=== PATIENT | male | born 1985 | race African-American/Black ===

== ENCOUNTER 2017-06-12 21:01 | Emergency (ER) | payer BC, OTHER ==
[2017-06-12] MEDS ORDERED: Ibuprofen TAB* 400 MG PO ONE (22:36)
--- NOTE | 2017-06-12 22:36 | ED ---
Samantha Parrish Edward, scribed for Nikhil Méndez MD on 06/12/17 at 2202 . HPI Chest Pain - HPI Summary HPI Summary: 31 y/o male presents to ED c/o intermittent CP for around 24 hours. The pain is aggravated when the patient lays down, stands up and bends over. Patient rates the pain at 2/10 at triage. Denies SOB. 1 year ago the pt had similar symptoms. - History of Current Complaint Chief Complaint: EDChestWallPain Hx Obtained From: Patient Timing: Intermittent Initial Severity: Mild Current Severity: Mild Pain Intensity: 2 Pain Scale Used: 0-10 Numeric Aggravating Factor(s): Position - Laying down, standing up, bending over Associated Signs and Symptoms: Negative: Shortness of Breath - Allergy/Home Medications Allergies/Adverse Reactions: Allergies Allergy/AdvReac Type Severity Reaction Status Date / Time No Known Allergies Allergy Verified 05/10/16 03:13 PMH/Surg Hx/FS Hx/Imm Hx Previously Healthy: No Endocrine/Hematology History: Denies: Hx Diabetes Cardiovascular History: Reports: Hx Hypertension - pre HTN Denies: Hx Congestive Heart Failure, Other Cardiovascular Problems/Disorders History: Denies: Hx Renal Disease Infectious Disease History: No Infectious Disease History: Denies: Traveled Outside the [place] in Last 30 Days - Family History Family History: R & n/C - Social History Alcohol Use: None Hx Substance Use: No Substance Use Type: Reports: None Hx Tobacco Use: No Smoking Status (MU): Never Smoked Tobacco Review of Systems Constitutional: Negative Eyes: Negative ENT: Negative Positive: Chest Pain Respiratory: Negative Negative: Shortness Of Breath Gastrointestinal: Negative Genitourinary: Negative Musculoskeletal: Negative Skin: Negative Neurological: Negative Psychological: Normal All Other Systems Reviewed And Are Negative: Yes Physical Exam Triage Information Reviewed: Yes Vital Signs On Initial Exam: Initial Vitals Temp Pulse Resp BP Pulse Ox 98.3 F 61 15 135/87 100 06/12/17 21:05 06/12/17 21:05 06/12/17 21:05 06/12/17 21:05 06/12/17 21:05 Vital Signs Reviewed: Yes Appearance: Positive: No Pain Distress, Thin Skin: Positive: Warm Head/Face: Positive: Normal Head/Face Inspection Eyes: Positive: CHICO ENT: Positive: Hearing grossly normal Neck: Positive: Supple Respiratory/Lung Sounds: Positive: Clear to Auscultation, Breath Sounds Present Cardiovascular: Positive: RRR Abdomen Description: Positive: Nontender, Soft Bowel Sounds: Positive: Present Musculoskeletal: Positive: Strength/ROM Intact Neurological: Positive: Alert, Oriented to Person Place, Time Diagnostics - Vital Signs Vital Signs Temp Pulse Resp BP Pulse Ox 06/12/17 21:05 98.3 F 61 15 135/87 100 - Laboratory Lab Statement: Any lab studies that have been ordered have been reviewed, and results considered in the medical decision making process. - Radiology CXR Xray Interpretation: No Acute Changes Radiology Interpretation Completed By: ED Physician - EKG 1 EKG Interpretation: 21:11 - Sinus Bradycardia @ 57 bpm Re-Evaluation - Re-Evaluation First Eval Change: Improved - results d/w pt Chest Pain Course/Dx - Course Assessment/Plan: 31 y/o male presents to ED c/o intermittent CP for around 24 hours. The pain is aggravated when the patient lays down, stands up and bends over. Patient rates the pain at 2/10 at triage. Denies SOB. 1 year ago the pt had similar symptoms. - Diagnoses Provider Diagnoses: Chest pain Discharge - Discharge Plan Condition: Stable Disposition: HOME Prescriptions: Ibuprofen TAB* [Motrin TAB* 800 MG] 800 mg PO TID #30 tab Patient Education Materials: Chest Pain (ED) Referrals: Omero Burnham MD [Primary Care Provider] - 3 Days (Please f/u in 2-3 days) The documentation as recorded by the Samantha madrid Edward accurately reflects the service I personally performed and the decisions made by , Nikhil Méndez MD.
[2017-06-12 23:25] VITALS: BP 118/72
--- NOTE | 2017-06-13 07:42 | RAD ---
HISTORY: Chest pain COMPARISONS: CT dated May 10, 2016 VIEWS: 4: Frontal dual-energy and lateral views of the chest. FINDINGS: CARDIOMEDIASTINAL SILHOUETTE: The cardiomediastinal silhouette is normal. BEREKET: The bereket are normal. PLEURA: The costophrenic angles are sharp. No pleural abnormalities are noted. LUNG PARENCHYMA: The lungs are clear. ABDOMEN: The upper abdomen is clear. There is no subphrenic gas. BONES AND SOFT TISSUES: No bone or soft tissue abnormalities are noted. OTHER: None. IMPRESSION: NO ACTIVE CARDIOPULMONARY DISEASE.
== END 2017-06-12 23:30 | disposition home or self-care (01) ==
LOC: ED 21:01
DX: R07.9 Chest pain, unspecified (principal)
CPT/HCPCS: 71020; 93005; 99282; A9270-GY

== ENCOUNTER 2017-09-06 10:12 | Emergency (ER) | payer BC, OTHER ==
[2017-09-06 10:22] VITALS: BP 121/68
--- NOTE | 2017-09-06 10:52 | UC ---
Lower Extremity/Ankle HPI - HPI Summary HPI Summary: PT WITH H/O FLAT FEET GETTING WORSE SINCE EARLY ADULTHOOD. NO SPECIFIC INJURY. PT NOT SURE WHAT HAS CAUSED HIS CONDITION BUT OVER THE PAST 10 DAYS HE HAS HAD PAIN IN RIGHT FOREFOOT. WORSE WITH AMBULATION. WONDERING IF HE HAS A STRESS FRACTURE. PT IS VERY ACTIVE, IS A RUNNER. - History of Current Complaint Chief Complaint: UCLowerExtremity Stated Complaint: FOOT INJURY Time Seen by Provider: 09/06/17 10:17 Hx Obtained From: Patient Onset/Duration: Gradual Onset, Lasting Weeks, Still Present Severity Initially: Moderate Severity Currently: Moderate Pain Intensity: 3 Pain Scale Used: 0-10 Numeric Aggravating Factor(s): Standing, Ambulation Alleviating Factor(s): Rest Able to Bear Weight: Yes - Allergies/Home Medications Allergies/Adverse Reactions: Allergies Allergy/AdvReac Type Severity Reaction Status Date / Time No Known Allergies Allergy Verified 05/10/16 03:13 Home Medications: Home Medications NK [No Home Medications Reported] 09/06/17 [History Confirmed 09/06/17] PMH/Surg Hx/FS Hx/Imm Hx Previously Healthy: Yes - Surgical History Surgical History: None - Family History Known Family History: Positive: Hypertension - Social History Alcohol Use: Occasionally Substance Use Type: None Smoking Status (MU): Never Smoked Tobacco Review of Systems Constitutional: Negative Skin: Negative Respiratory: Negative Cardiovascular: Negative Gastrointestinal: Negative Musculoskeletal: Arthralgia, Decreased ROM All Other Systems Reviewed And Are Negative: Yes Physical Exam Triage Information Reviewed: Yes Appearance: Well-Appearing, No Pain Distress, Well-Nourished Vital Signs: Initial Vital Signs Temp 98.3 F 09/06/17 10:17 Pulse 103 09/06/17 10:17 Resp 18 09/06/17 10:17 BP 121/68 09/06/17 10:17 Pulse Ox 100 09/06/17 10:17 Vital Signs Reviewed: Yes Eyes: Positive: Conjunctiva Clear ENT: Positive: Hearing grossly normal Neck: Positive: Supple Respiratory: Positive: No respiratory distress, No accessory muscle use Cardiovascular: Positive: Pulses Normal Abdomen Description: Positive: Soft Musculoskeletal: Positive: No Edema, ROM Limited @ - RIGHT FOOT, Other: - TTP RIGHT FOREFOOT. VERY FLAT FEET Neurological: Positive: Alert Psychological: Positive: Age Appropriate Behavior Skin: Negative: rashes Diagnostics - Radiology RIGHT FOOT XRAY Xray Interpretation: Positive (See Comments) - 1. No radiographic evidence for stress reaction or fracture. 2. Pes planus deformity. 3. 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 Radiology Interpretation Completed By: Radiologist Lower Extremity Course/Dx - Differential Dx/Diagnosis Provider Diagnoses: PES PLANUS Discharge - Discharge Plan Condition: Stable Disposition: HOME Patient Education Materials: Foot Sprain (ED) Referrals: Omero Burnham MD [Primary Care Provider] - If Needed Additional Instructions: NOTHING ACUTE ON XRAY TODAY. RECOMMEND FOLLOW-UP WITH ORTHOPEDICS IN [place] OR [place].
--- NOTE | 2017-09-06 11:19 | RAD ---
Indication: Pain top of RIGHT foot for a couple of weeks. Long-term exercising. Assess for stress reaction or fracture. Comparison: October 26, 2016 CT and radiographs. Technique: AP, lateral, and oblique views RIGHT foot. Report: No radiographic stigmata of stress reaction or discrete macroscopic fracture evident. Loss of the longitudinal arch of the foot as on the prior exam. 25 degrees hallux valgus deformity without change. Minimal osteophytosis at the first metatarsal phalangeal joint. Unremarkable soft tissue contours. IMPRESSION: 1. No radiographic evidence for stress reaction or fracture. 2. Pes planus deformity. 3. 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
== END 2017-09-06 11:48 | disposition home or self-care (01) ==
LOC: UCEAST 10:12
DX: M21.41 Flat foot [pes planus] (acquired), right foot (principal)
CPT/HCPCS: 99211; G0463

== ENCOUNTER 2018-08-11 17:35 | Emergency (ER) | payer SELFPAY ==
--- NOTE | 2018-08-11 18:27 | ED ---
Psychiatric Complaint - HPI Summary HPI Summary: 32 year old M BIB police on 941 to [facility] complains of suicidal ideation since two hours ago. Symptoms aggravated by nothing. Symptoms alleviated by nothing. Patient denies homicidal ideation. Per police, patient's found patient drinking beers and taking Benadryl. When asked, patient reports drinking 1 can of beer and taking 2 Benadryl. He states he made some "misconstrued statement" to his , who called 911. - History Of Current Complaint Chief Complaint: EDMentalHealth Time Seen by Provider: 08/11/18 18:13 Hx Obtained From: Patient Onset/Duration: Lasting Hours - 2, Still Present Aggravating Factor(s): Nothing Alleviating Factor(s): Nothing Has Suicidal: Reports: Thoughts Has Homicidal: Denies: Thoughts - Allergies/Home Medications Allergies/Adverse Reactions: Allergies Allergy/AdvReac Type Severity Reaction Status Date / Time No Known Allergies Allergy Verified 08/11/18 17:50 PMH/Surg Hx/FS Hx/Imm Hx Previously Healthy: No Endocrine/Hematology History: Denies: Hx Diabetes Cardiovascular History: Reports: Hx Hypertension - pre HTN Denies: Hx Congestive Heart Failure, Other Cardiovascular Problems/Disorders History: Denies: Hx Renal Disease Sensory History: Reports: Hx Contacts or Glasses Opthamlomology History: Reports: Hx Contacts or Glasses - Surgical History Surgery Procedure, Year, and Place: none Infectious Disease History: No Infectious Disease History: Denies: Traveled Outside the [place] in Last 30 Days - Family History Known Family History: Positive: Hypertension - Social History Alcohol Use: Occasionally Hx Substance Use: No Substance Use Type: Reports: None Hx Tobacco Use: No Smoking Status (MU): Never Smoked Tobacco Review of Systems Negative: Fever Positive: Other - suicidal plan; NEGATIVE: homicidal ideation All Other Systems Reviewed And Are Negative: Yes Physical Exam - Summary Physical Exam Summary: VITAL SIGNS: Reviewed. GENERAL: Patient is a well-developed and nourished male who is lying comfortable in the stretcher. Patient is not in any acute respiratory distress. HEAD AND FACE: No signs of trauma. No ecchymosis, hematomas or skull depressions. No sinus tenderness. EYES: PERRLA, EOMI x 2, No injected conjunctiva, no nystagmus. EARS: Hearing grossly intact. Ear canals and tympanic membranes are within normal limits. MOUTH: Oropharynx within normal limits. NECK: Supple, trachea is midline, no adenopathy, no JVD, no carotid bruit, no c- spine tenderness, neck with full ROM. CHEST: Symmetric, no tenderness at palpation LUNGS: Clear to auscultation bilaterally. No wheezing or crackles. CVS: Regular rate and rhythm, S1 and S2 present, no murmurs or gallops appreciated. ABDOMEN: Soft, non-tender. No signs of distention. No rebound no guarding, and no masses palpated. Bowel sounds are normal. EXTREMITIES: FROM in all major joints, no edema, no cyanosis or clubbing. NEURO: Alert and oriented x 3. No acute neurological deficits. Speech is normal and follows commands. SKIN: Dry and warm PSYCH: Depressed, quiet, and denies any suicidal thoughts or plan. No homicidal thoughts or plan. No signs of psychosis or pressure speech. No tangential speech. Triage Information Reviewed: Yes Vital Signs On Initial Exam: Initial Vitals Temp Pulse Resp BP Pulse Ox 98.7 F 64 16 168/97 100 08/11/18 17:47 08/11/18 17:47 08/11/18 17:47 08/11/18 17:47 08/11/18 17:47 Vital Signs Reviewed: Yes Diagnostics - Vital Signs Vital Signs Temp Pulse Resp BP Pulse Ox 08/11/18 17:47 98.7 F 64 16 168/97 100 - Laboratory Result Diagrams: 08/11/18 19:02 08/11/18 19:02 Lab Statement: Any lab studies that have been ordered have been reviewed, and results considered in the medical decision making process. - EKG 1826 Cardiac Rate: NL - 77 BPM EKG Rhythm: Sinus Rhythm EKG Interpretation: no ST elevations Course/Dx - Course Assessment/Plan: Patient is a 32-year-old male who presents to the emergency department with a chief complaint of having depression, anxiety. He has made statements where he wants to hurt himself to his significant other. Today he was drinking alcohol and he also reports that he to a couple Benadryl tablets. The patient reports that he took only 2 Benadryl tablets however the significant other had the impression that he took more than that however this is not confirmed. At this time the patient is alert and oriented 3, he is very cooperative and has no other complaints. Patient denies any suicidal or homicidal ideation at this time. Blood work without any significant abnormality. EKG shows a sinus rhythm at 77 bpm without any stimulation. The EKG is similar to be was occasional 05/10/16. The primary nurse spoke with poison control and they recommended for the patient to get charcoal, an EKG, and observation for approximately 6 hours for medical clearance. At this point we offered the patient charcoal and he declined. The patient is alert and oriented 3 and he declined the charcoal. This patient will be signed out to Dr. Germain at shift change. He will clear the patient in approximately 12 midnight and he will request for mental health evaluation. At this point the patient is hemodynamically stable alert oriented 3. - Differential Dx/Clinical Impression Differential Diagnosis/HQI/PQRI: Positive: Anxiety, Depression, Drug Overdose/ Intentional, Suicidal Ideation Provider Diagnosis: Suicidal ideation, Overdose Discharge - Sign-Out/Discharge Documenting (check all that apply): Sign-Out Patient Signing out patient TO: Lee Daigle - awaiting MHE, pending dispo - Discharge Plan Disposition: HOME Referrals: Omero Burnham MD [Primary Care Provider] - - Billing Disposition and Condition Condition: STABLE - Attestation Statements Document Initiated by Scribe: Yes Documenting Scribe: Gsielle Olivo Provider For Whom Yessenia is Documenting (Include Credential): Meliton Quiñonez MD Scribe Attestation: Giselle Parrish, scribed for Meliton Quiñonez MD on 08/12/18 at 1136. Scribe Documentation Reviewed: Yes Provider Attestation: The documentation as recorded by the scribGiselle rosales accurately reflects the service I personally performed and the decisions made by me, Meliton Quiñonez MD
[2018-08-11 19:14] LABS: Hematocrit 44 % (42-52); Hemoglobin 14.6 g/dl (14.0-18.0); Mean Corpuscular HGB Conc 33 g/dl (31-36); Mean Corpuscular Hemoglobin 29 pg (27-31); Mean Corpuscular Volume 88 fL (80-94); Mean Platelet Volume 9.5 um3 (7.4-10.4); Platelet Count 137 10^3/ul (150-450); Red Cell Distribution Width 14 % (10.5-15); White Blood Count 4.4 10^3/ul (3.5-10.8)
[2018-08-11 19:29] LABS: Urine Appearance Clear; Urine Blood Negative (Negative); Urine Color Yellow; Urine Ketones Negative (Negative); Urine Protein Negative (Negative); Urine Specific Gravity 1.006 (1.010-1.030); Urine Urobilinogen Negative (Negative)
[2018-08-11 19:31] LABS: EGFR Non-African American 84.8 (>60)
[2018-08-11 19:54] LABS: ABS Basophils 0 10^3/ul (0-0.2); ABS Eosinophils 0.1 10^3/ul (0-0.6); ABS Lymphocytes 1.4 10^3/ul (1.0-4.8); ABS Monocytes 0.6 10^3/ul (0-0.8); ABS Neutrophils 2.2 10^3/ul (1.5-7.7); ABS Nucleated RBC 0 10^3/ul; Eosinophil % 2.4 % (0-6); Lymphocyte % 32.8 % (25-47); Nucleated Red Blood Cells % 0.1
--- NOTE | 2018-08-11 22:07 | ED ---
Progress - Progress Note Progress Note: Pt was signed out by Dr. Quiñonez to Dr. Daigle. Awaiting MHE and disposition. Course/Dx - Diagnoses Provider Diagnoses: Suicidal ideation, Overdose Discharge - Discharge Plan Condition: Stable Referrals: Omero Burnham MD [Primary Care Provider] - - Attestation Statements Document Initiated by Scribe: Yes Documenting Scribe: Allen France Provider For Whom Scribe is Documenting (Include Credential): Lee Daigle MD Scribe Attestation: IAllen, scribed for Lee Daigle MD on 08/11/18 at 2206.
[2018-08-12 03:53] VITALS: BP 123/83
== END 2018-08-12 04:00 | disposition home or self-care (01) ==
LOC: ED 17:35
DX: T45.0X1A Poisoning by antiallergic and antiemetic drugs, accidental (unintentional), initial encounter (principal); T51.91XA Toxic effect of unspecified alcohol, accidental (unintentional), initial encounter; R45.851 Suicidal ideations
CPT/HCPCS: 36415; 80053; 80307; 80320; 80329; 81003; 84443; 85025; 93005; 99285; G0480